=== PATIENT | female | born 2005 | race Caucasian/White ===

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

== ENCOUNTER 2025-01-10 09:12 | Emergency (ER) | payer SELFPAY ==
--- NOTE | ~2025-01-10 | US_ITS ---
EXAMINATION: US OB <=14 wk fetus w TV DATE: 01/10/2025 12:14 INDICATION: Vaginal bleeding during first trimester TECHNIQUE: Real-time pelvic ultrasound utilizing both a transvaginal and transabdominal probe was performed. The interpreting radiologist was not present for the study. COMPARISON: None. FINDINGS: The uterus measures 7.7 x 3.9 x 4.7 cm. Endometrial complex measures up to 11 mm in thickness at the lower uterine segment.No evident intrauterine gestational sac. Cervix is unremarkable measuring 3.3 cm in length. The right ovary measures 3.7 x 2.0 x 2.0 cm. The left ovary measures 2.2 x 2.6 x 1.9 cm. There is trace amount of anechoic free fluid in the cul-de-sac. IMPRESSION: 1. No evident intrauterine gestational sac for which differential would include early failed or ectopic although no abnormal adnexal mass identified to suggest the latter. Recommend follow-up with serial beta-hCG levels and repeat imaging as clinically indicated. Reviewed, dictated and finalized at location A. [employer] IMPRESSION: 1. No evident intrauterine gestational sac for which differential would include early failed or ectopic although no abnormal adnexal mass identified to suggest the latter. Recommend follow-up with serial beta-hCG levels and rep eat imaging as clinically indicated.
[2025-01-10 09:33] VITALS: BP 119/77; PULSE 108; RESP 16; TEMP 36.6; O2SAT 99
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
--- OUTSIDE RECORDS SUMMARY | 2025-01-10 11:50 | XMS_ITS | Encounter Summary ---
Author Organization [facility] Address [address] [place] [address] Care Team Providers Care Postal Service Clerk Name Role Phone Unknown, Provider Primary Care Provider Unavaila Torsten Cox MD Unavailable Torsten Mckinnon MD Unavailable Torsten Mckinnon MD Primary Care Provider [phone] Kaylyn Meyers MD Primary Care Provider [phone] Encounter Details Date Type Department Care Team (Late st Contact Info) Description 04/17/2020 Ophth Exam [facility] - Ophthalmology [address] [place] [address] Rohit Palma MD [address] [place] [address] [place] [address] Social History Tobacco Use Types Packs/Day Years Used Date Smoking Tobacco: Unknown Comments Unknown Sex and Gender Information Value Date Recorded Sex Assigned at Not on file Legal Sex Female 7:06 PM RECEPTIONIST TELEPHONE OPERATOR Gender Identity Not on file Sexual Orientation Not on file documented as of this encounter Functional Status * Functional and Cognitive Status Question Answer Date of Assessment Author Is person deaf or have gabriella us hearing difficulty? No 04/18/2020 2:45 AM RECEPTIONIST TELEPHONE OPERATOR Catherine Tristan Is person blind or have seri ous difficulty seeing? No 04/18/2020 2:45 AM RECEPTIONIST TELEPHONE OPERATOR Catherine Tristan Does person have serious difficulty walking/climbing stairs? No 04/18/2020 2:45 AM RECEPTIONIST TELEPHONE OPERATOR Catherine Tristan Does person have difficulty dressing/bathing? No 04/18/2020 2:45 AM RECEPTIONIST TELEPHONE OPERATOR Catherine Tristan Does person have difficulty doing errands alone? No 04/18/2020 2:45 AM RECEPTIONIST TELEPHONE OPERATOR Catherine Tristan Does person have difficulty concentrating/remembering/making decisions? No 04/18/2020 2:45 AM Catherine Avendaño documented as of this encounter Plan of Treatment Not on file documented as of this encounter Visit Diagnoses Not on filedocumented in this encounter Care Teams Postal Service Clerk Relationship Specialty Start Date End Date Unknown, Provider PCP - General 04/17/20 04/23/20 Torsten Mckinnon MD [facility] [place] [phone] PCP - General 04/24/20 09/23/21 Kaylyn Meyers MD [address] [place] [phone] PCP - General Pediatrics 09/24/21 Torsten Mckinnon MD [address] [place] [address] [place] [phone] 04/17/20 Torsten Mckinnon MD [address] [place] [address] [place] [phone] Pediatrics 10/31/19 documented as of this encounter
--- NOTE | 2025-01-10 12:02 | PC.NURSE ---
patient returned to room from ultrasound at this time.
[2025-01-10 13:02] LABS: Hematocrit 40.8 % (37.0-47.0); Hemoglobin 13.4 g/dL (12.0-15.0); Immature Granulocyte Percent A 0.4 % (0-0.5); Lymphocytes Absolute Auto 2.03 K/mm3 (0.9-3.2); Mean Corpuscular HGB Conc 32.8 g/dl (32-36); Mean Corpuscular Hemoglobin 31.4 pg (26-34); Mean Corpuscular Volume 95.6 fl (80-100); Nucleated Red Blood Cells Absolute Auto 0.000 K/mm3 (0.0-0.012); Nucleated Red Blood Cells Perc 0.0 % (0.0-0.2); Platelet Count Result 267 k/mm3 (150-375); Red Blood Count 4.27 M/mm3 (4.2-5.4); White Blood Count 14.2 K/mm3 (4.5-10.0)
[2025-01-10] MEDS: ACETAMINOPHEN 500 MG TABLET 1000 MG PO (13:04)
[2025-01-10 13:21] LABS: Alanine Aminotransferase 19 U/L (6-35); Albumin Level 4.8 g/dL (3.5-5.1); Alkaline Phosphatase 77 U/L (38-126); Anion Gap 10 mmol/L (4-12); Aspartate Amino Transferase 27 U/L (14-36); Bilirubin,Total 0.9 mg/dL (0.2-1.3); Blood Urea Nitrogen 13 mg/dL (7-17); Calcium 9.6 mg/dL (8.4-10.2); Carbon Dioxide 23 mmol/L (22-30); Chloride 106 mmol/L (98-107); Estimated CRCL calculation 88 ml/min; Estimated Glomerular Filt Rate > 60; Glucose 93 mg/dL (65-110); Potassium 4.0 mmol/L (3.4-5.0); Sodium 139 mmol/L (137-145); Total Protein 7.9 g/dL (6.3-8.2)
[2025-01-10 13:38] LABS: Beta HCG Quantitative 14.32 mIU/ML
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
--- NOTE | 2025-01-10 15:55 | ED_ITS ---
HPI - General Adult General Chief complaint: Vaginal Bleeding Stated complaint: miscarriage Time Seen by Provider: 01/10/25 10:57 History of Present Illness HPI narrative: 19-year-old female presenting with for the last 2 days vaginal bleeding at 6 weeks . She endorses diffuse lower pelvic pain and vomiting 2 nights ago. She reports spotting and small clots when she wipes, but has not gone through any pads. Sees Dr. Hood for OBGYN although she has not been seen yet for this . Reports unprotected sex and would like to be tested for STDs. Denies diarrhea/nausea, chest pain/shortness of breath, fevers/chills. Related Data Home Medications ?Medication ?Instructions ?Recorded ?Confirmed ?Last Taken ?Type ferrous sulfate 142 mg (45 mg 142 mg PO DAILY 09/21/22 09/21/22 09/21/22 History iron) tablet,extended release (Slow Fe) vits 75-iron 28 mg-folic 1 pkg PO DAILY 09/2109/21/22 09/21/22 History acid 800 mcg-omega3 440 mg oral pack Allergies Allergy/AdvReac Type Severity Reaction Status Date / Time No Known Allergies Allergy Mild Verified 05/25/22 12:23 Review of Systems 2 Review of Systems: All systems reviewed & are unremarkable except as noted in HPI and below PMFSH Past Medical History Medical History No active medical problems Social History Social History Smoking status: Current every day smoker Tobacco type: e-cigarettes/vaping Second hand tobacco smoke exposure: No Substance use: former Last use: weeks ago Lack of Transportation: No Lack of Food: Never True Current Housing: I Have Housing Concerned About Future Housing: No Difficulty Paying Gas/Electric Bills: No Difficulty Paying for Meds: No Currently Unemployed: No Education: High School Diploma/GED Difficulty w/ Childcare or Family Care: No Spiritual care concerns: No Exam 2 Narrative: GENERAL: No acute distress. HEAD: Normocephalic, atraumatic. EYES: PERRLA and EOMI. ENT: Nares clear, no rhinorrhea or epistaxis. Mucous membranes moist. Oropharynx without tonsillar hypertrophy exudate or other lesions. Bilateral TMs pearly eason non-bulging NECK: Supple. No adenopathy or masses. No carotid bruits or JVD CHEST: Clear to auscultation. No respiratory distress. No wheezes rales or rhonchi HEART: Regular rate and rhythm. No murmur heard. Normal peripheral pulses. ABDOMEN: Soft, nondistended, normal active bowel sounds. Mild diffuse lower abdominal tenderness. EXTREMITIES: Normal range of motion. No edema. SKIN: Warm, dry, no rash. NEURO: No focal deficits. Alert and oriented x3. PSYCH: Normal mood and affect Course Vital Signs Vital signs: Vital Signs Temperature 97.9 F 01/10/25 09:33 Pulse Rate 108 H 01/10/25 09:33 Respiratory Rate 16 01/10/25 09:33 Blood Pressure 119/77 01/10/25 09:33 Pulse Oximetry 99 01/10/25 09:33 Oxygen Delivery Room Air 01/10/25 09:33 Temperature 97.9 F 01/10/25 09:33 Pulse Rate 108 H 01/10/25 09:33 Respiratory Rate 16 01/10/25 09:33 Blood Pressure 119/77 01/10/25 09:33 Pulse Oximetry 99 01/10/25 09:33 Oxygen Delivery Room Air 01/10/25 09:33 Medical Decision Making MDM Narrative Medical decision making narrative: 19-year-old female presenting with for the last 2 days vaginal bleeding at 6 weeks . She endorses diffuse lower pelvic pain and vomiting 2 nights ago. She reports spotting and small clots when she wipes, but has not gone through any pads. Sees Dr. Hood for OBGYN although she has not been seen yet for this . Reports unprotected sex and would like to be tested for STDs. Denies diarrhea/nausea, chest pain/shortness of breath, fevers/chills. Mild leukocytosis but H&H stable. Vitals stable during my assessment. Pelvic exam demonstrated an open cervix and active bleeding from the cervical os. Quantitative beta-hCG 14.32. Transvaginal ultrasound demonstrates no evident intrauterine gestational sac for which differential would include early failed or ectopic although no abnormal adnexal mass identified to suggest the latter and recommendation for follow-up with serial beta-hCG levels and repeat imaging as clinically indicated. RhoGAM not indicated. During patient's stay she reports significantly more bleeding and clot passage with diffuse lower abdominal cramping. Spoke with OBGYN Dr. Hood who recommended close follow-up outpatient. He also noted that a follow-up quantitative beta hCG would not be beneficial at this time. STD panel negative. Administer Tylenol with minimal relief. Discussed with patient that her symptoms are likely consistent with a miscarriage and that she would continue to bleed and have mild cramping, emphasized need for close follow-up with Dr. Hood. Patient verbalized understanding and was given reasons to return. Medical Records Medical records reviewed: Yes I reviewed the external patient's medical records. Vital Signs Vital Signs: Vital Signs Temperature 97.9 F 01/10/25 09:33 Pulse Rate 108 H 01/10/25 09:33 Respiratory Rate 16 01/10/25 09:33 Blood Pressure 119/77 01/10/25 09:33 Pulse Oximetry 99 01/10/25 09:33 Oxygen Delivery Room Air 01/10/25 09:33 Temperature 97.9 F 01/10/25 09:33 Pulse Rate 108 H 01/10/25 09:33 Respiratory Rate 16 01/10/25 09:33 Blood Pressure 119/77 01/10/25 09:33 Pulse Oximetry 99 01/10/25 09:33 Oxygen Delivery Room Air 01/10/25 09:33 Lab Data Lab results reviewed: Yes I reviewed the patient's lab results. 01/10/25 12:43 01/10/25 12:43 Labs: Lab Results 01/10/25 01/10/25 Range/Units 12:43 12:50 WBC 14.2 H (4.5-10.0) K/mm3 RBC 4.27 (4.2-5.4) M/mm3 Hgb 13.4 (12.0-15.0) g/dL Hct 40.8 (37.0-47.0) % MCV 95.6 (80-100) fl MCH 31.4 (26-34) pg MCHC 32.8 (32-36) g/dl RDW 12.6 (11.5-14.5) % Plt Count 267 (150-375) k/mm3 MPV 11.0 H (7.4-10.4) fl Immature Gran % (Auto) 0.4 (0-0.5) % Neut % (Auto) 75.2 H (45.5-73.1) % Lymph % (Auto) 14.3 L (18.3-44.2) % Wilkinson % (Auto) 6.8 (2.6-8.5) % Eos % (Auto) 2.9 (0-4.4) % Baso % (Auto) 0.4 (0.2-1.2) % Lymph # (Auto) 2.03 (0.9-3.2) K/mm3 Wilkinson # (Auto) 1.0 H (0.1-0.6) K/mm3 Eos # (Auto) 0.4 H (0-0.3) K/mm3 Baso # (Auto) 0.1 (0.0-0.1) K/mm3 Abs Immat Gran (auto) 0.06 H (0.00-0.031) K/mm3 Absolute Neuts (auto) 10.7 H (1.3-6.7) K/mm3 Absolute Nucleated RBC 0.000 (0.0-0.012) K/mm3 Nucleated RBC % 0.0 (0.0-0.2) % Sodium 139 (137-145) mmol/L Potassium 4.0 (3.4-5.0) mmol/L Chloride 106 (98-107) mmol/L Carbon Dioxide 23 (22-30) mmol/L Anion Gap 10 (4-12) mmol/L BUN 13 (7-17) mg/dL Creatinine 0.73 (0.7-1.0) mg/dL Estim Creat Clear Calc 88 ml/min Estimated GFR > 60 (59 - ) Glucose 93 (65-110) mg/dL Calcium 9.6 (8.4-10.2) mg/dL Total Bilirubin 0.9 (0.2-1.3) mg/dL AST 27 (14-36) U/L ALT 19 (6-35) U/L Alkaline Phosphatase 77 (38-126) U/L Total Protein 7.9 (6.3-8.2) g/dL Albumin 4.8 (3.5-5.1) g/dL Beta HCG, Quant 14.32 mIU/ML C. trachomatis (PCR) Not detected (NOT DETECTE) N. gonorrhoeae (PCR) Not detected (NOT DETECTE) Blood Type O Positive Antibody Screen Negative Imaging Data Attestation: I personally reviewed and interpreted this imaging study as follows: Radiologist's impression: ITS Impressions Obstetrics Ultrasound 01/10/25 12:16 IMPRESSION: 1. No evident intrauterine gestational sac for which differential would include early failed or ectopic although no abnormal adnexal mass identified to suggest the latter. Recommend follow-up with serial beta-hCG levels and repeat imaging as clinically indicated. Discharge Plan Discharge Clinical Impression: Vaginal bleeding during Patient Disposition: Home Condition: Stable Instructions: Miscarriage (ED) Additional Instructions: Repeat your quantitative hCG level in 48 hours. Follow-up with OBGYN. Return for severe abdominal/pelvic pain, heavy vaginal bleeding (soaking greater than 1 pad per hour or passing large clots), feeling faint/dizzy, fever/chills, or any other symptoms that are concerning to you. Follow-up with PCP for any other general concerns. Patient Language: Kinyarwanda Prescriptions: No Action 75-iron [id number] mg-mcg-mg Combo Pack 1 pkg PO DAILY Slow Fe 142 mg (45 mg iron) Tablet Extended Release 142 mg PO DAILY Other Ambulatory Orders: Beta HCG Quantitative (Routine) Timeframe: 2 Days Location: Determined by Patient Ordered By: Cecile Rae Follow-up/Referrals: Uli Hood MD [Primary Care Provider, [facility]]
== END 2025-01-10 15:58 | disposition home or self-care (01) ==
PROVIDERS: PCP Obstetrics & Gynecology
DX: O46.91 Antepartum hemorrhage, unspecified, first trimester (principal); Z3A.01 Less than 8 weeks gestation of pregnancy
CPT/HCPCS: 36415; 76801; 76817; 80053; 84702; 85025; 86850; 86900; 86901; 87491; 87591; 99284; A9270